=== PATIENT | female | born 1980 | race Caucasian/White ===

== ENCOUNTER 2019-04-15 20:05 | Day surgery (SDC) | payer BC ==
[~2019-04-15] VITALS: Ht 165.1 cm; Wt 65.5 kg
[2019-04-15] MEDS ORDERED: BIRTH CONTROL (20:18)
[2019-04-15 21:00] VITALS: BP 126/72
[2019-04-15 22:00] VITALS: BP 123/77
--- NOTE | 2019-04-15 23:00 | NUR ---
SPLINT APPLIED BY MD TO L LOWER EXT. CAP REFILL LESS THAN 3 SEC. PULSE STRONG AND PALPABLE.
[2019-04-16] VITALS (7 sets, daily range): BP systolic 105–131; BP diastolic 54–77; Ht 165.1 cm; Wt 65.5 kg
[2019-04-16] MEDS ORDERED: SPRINTEC 28 DA1 EAC1 PO (00:55)
[2019-04-16 05:34] LABS: BASOPHILS 0.2 % (0-2); EOSINOPHILS 0.3 % (0-7); HEMATOCRIT 33.6 % (36.0-48.0); HEMOGLOBIN 11.4 g/dL (12-16); IMMATURE GRANULOCYTES 0.4 % (0-5); LYMPHOCYTES 25.2 % (15-50); MCH 31.8 pg (26.0-34.0); MCHC 33.9 g/dL (31.0-37.0); MCV 93.9 fL (80.0-100.0); MEAN PLATELET VOLUME 10.4 fL (7.4-10.4); MONOCYTES 10.1 % (2-11); NEUTROPHILS 63.8 % (40-80); PLATELET COUNT 189 10x3/uL (130-400); RBC 3.58 10x6/uL (4.00-5.40); RDW 12.3 % (11.5-14.5)
[2019-04-16 05:49] LABS: ANION GAP 11.8 mmol/L (8-16); BILIRUBIN - TOTAL 1.38 mg/dL (0.2-1.3); CALCIUM 7.9 mg/dL (8.5-10.1); CARBON DIOXIDE 24.6 mmol/L (21.0-32.0); CREATININE - SERUM 0.9 mg/dL (0.6-1.3); POTASSIUM - SERUM 3.4 mmol/L (3.5-5.1); PROTEIN - SERUM 5.6 g/dL (6.4-8.2)
--- NOTE | 2019-04-16 12:17 | NUR ---
ALERT AND OREITNED X4 WITH SPLIT NOTED TO LOFT ANKLE. WITH CAP RELILL <3 SEC. AND GOOD ROM. IV TO LEFT. A/C TO N/S 125CC/HR. MORPHINE GIVEN FOR PAIN AND ICE COMPRESSES. DR. SALAMANCA HERE FOR CONSULT
--- NOTE | 2019-04-16 12:20 | NUR ---
CONSEENTS SIGNED FOR SURGERY WITH NO COMPLAINTS AT THIS TIME
--- NOTE | 2019-04-16 13:30 | NUR ---
PT SIGNED SURGICAL CONSENT AND RPEOPED FOR SURGERY. STABLE AT TIME OF DEPARTURE.
--- NOTE | 2019-04-16 16:00 | NUR ---
PT RETURNED WITH CAST NOTED TO LLE WITH CAP REFILL <3 SEC WITH GOOD ROM OF TOES. DENIES ANY PAIN OR DISCOMFORT AT THIS TIME.
--- NOTE | 2019-04-16 17:18 | NUR ---
SCD PLACED ON RIGHT LE.
--- NOTE | 2019-04-16 20:00 | NUR ---
RESTING QUETILY WITH NO DISTRESS NOTED. RESP UNLABORED. IV TO LAC INTACT WITHOUT REDNESS OR EDEMA NOTED. MARCIN WRAP DRESSING TO LEFT LOWER LEF INTACT WITHOUT DRAINAGE NOTED. CL IN REACH
[2019-04-17 00:52] VITALS: BP 117/63
[2019-04-17 05:19] VITALS: BP 125/76
[2019-04-17 05:50] LABS: BASOPHILS 0.1 % (0-2); EOSINOPHILS 0.2 % (0-7); HEMATOCRIT 33.3 % (36.0-48.0); HEMOGLOBIN 11.1 g/dL (12-16); IMMATURE GRANULOCYTES 0.2 % (0-5); LYMPHOCYTES 23.1 % (15-50); MCHC 33.3 g/dL (31.0-37.0); MEAN PLATELET VOLUME 10.8 fL (7.4-10.4); NEUTROPHILS 64.4 % (40-80); PLATELET COUNT 165 10x3/uL (130-400); RBC 3.47 10x6/uL (4.00-5.40); RDW 12.3 % (11.5-14.5); WBC 9.4 10x3/uL (4.8-10.8)
[2019-04-17 06:04] LABS: CALC OSMOLALITY 272 mosm/kg (275-300); CALCIUM 7.8 mg/dL (8.5-10.1); CARBON DIOXIDE 20.7 mmol/L (21.0-32.0); CHLORIDE - SERUM 108 mmol/L (98-107); CREATININE - SERUM 0.8 mg/dL (0.6-1.3); GLUCOSE 80 mg/dL (74-106); POTASSIUM - SERUM 3.9 mmol/L (3.5-5.1); SODIUM 138 mmol/L (136-145); eGFR NON AFRICAN AMERICAN 85 mL/min (90-120)
[2019-04-17 06:10] LABS: UREA NITROGEN 6 mg/dL (7-18)
--- NOTE | 2019-04-17 06:20 | NUR ---
I have reviewed this patient and I concur with the Shift Assessment completed by the Licensed Practical Nurse today this shift.
--- NOTE | 2019-04-17 07:20 | NUR ---
PT RESTING IN BED WITH LEFT LOWER EXTREMITY ELEVATED. DRESSING C/D/I TO EXTREMITY. WARM TO TOUCH. ABLE TO MOVE TOES. ICE PACKS IN PLACE. PT REPORTS PAIN 10/10 AT THIS TIME. TORADOL ADMINISTERED PER MD ORDERS. IV TO LEFT AC WITH NS @ 50ML/HR INFUSING VIA PUMP. SITE WITHOUT REDNESS OR EDEMA. DENIES FURTHER NEEDS AT THIS TIME. CL WITHIN REACH. ENCOURAGED TO CALL WITH NEEDS. CONTINUE POC
[2019-04-17 07:59] VITALS: BP 134/84
[2019-04-17] MEDS ORDERED: PROTONIX40 MG PO (12:19)
[2019-04-17] MEDS ORDERED: HYDROCODON-ACE1 EAC7 PO (12:36)
[2019-04-17 12:50] VITALS: BP 120/83
--- NOTE | 2019-04-17 13:24 | MORECARE ---
CASE MANAGEMENT DISCHARGE SUMMARY PATIENT: ROSALINO RUIZ UNIT: [id number] ADM DATE: 04/15/19 AGE: 38 : [birth year] SEX: F ROOM/BED: D.2233 AUTHOR: BIJAN MARES PHYSICIAN: REFERRING PHYSICIAN: EDUARDO SANABRIA MD DATE OF SERVICE: 04/17/19 Discharge Plan Patient Name: ROSALINO RUIZ Facility: [facility]:[place] : 1980 Planned Disposition: Home Anticipated Discharge Date: Discharge Date: Expected LOS: Initial Reviewer: [email or web address] Initial Review Date: 04/17/2019 Generated: 04/17/19 2:23 pm Comments DCP- Discharge Planning Updated by [email or web address]: Paris Sutherland on 04/17/19 12:[address] Patient Name: ROSALINO RUIZ Admission Status: ER Accout number: [id number] Admission Date: 04-15-2019 : 1980 Admission Diagnosis: Attending: EDUARDO SANABRIA Current LOS: 2 Anticipated DC Date: Planned Disposition: Home Primary Insurance: [employer] OUT OF STATE Discharge Planning Comments: RECEIVED DISCHARGE ORDERS. MET WITH PATIENT AND SHE IS IN AGREEMENT TO DISCHARGE. SHE WOULD LIKE A WALKER RATHER THAN CRUTCHES. SHE WOULD LIKE A SHOWER CHAIR IF INSURANCE WILL PAY FOR IT. I CALLED [employer] AND ORDER FAXED. AYDIN STATES HER INSURANCE WILL NOT PAY FOR A SHOWER CHAIR. PATIENT STATES SHE WILL BUY ONE HERSELF FROM [employer]. 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 [employer]: Paris Sutherland External Providers [facility] Next Contact Date: Service Request Date: Service Type: Resolution: Reviewer: Comments: Coverage Notice Reviewer: [id number] - Paris Sutherland Notice Issued Date-Time: 04/17/2019 13:22 Notice Type: Patient Choice Letter Notice Delivered To: Patient Relationship to Patient: Self Animal Cruelty Investigation Supervisor Name: Delivery Method: HAND - Hand Delivered Clarisa Days: Prior Verbal Notification: Recipient Understood Notice: Yes Recipient Signature: Yes Med Rec Note Co-signed by Attending: Coverage Notice Comment: NANCY FOR [place] Patient Name: ROSALINO RUIZ Page [phone] at 1324 All edits/amendments must be made on the electronic document DICTATION DATE: 04/17/191322 SURFACE SUPERVISOR: CAITLYN 04/17/191322 RPT#: [id number] DC DATE: STATUS: ADM IN [facility] [address] [place] [address] END OF REPORT
[2019-04-17] MEDS ORDERED: HYDROCODONE-A1 UDTA2 PO (13:43)
[2019-04-17 14:04] LABS: HCG URINE NEGATIVE (NEGATIVE)
--- NOTE | 2019-04-18 07:19 | MORECARE ---
CASE MANAGEMENT DISCHARGE SUMMARY PATIENT: ROSALINO RUIZ UNIT: [id number] ADM DATE: 04/15/19 AGE: 38 : [birth year] SEX: F ROOM/BED: D.2233 AUTHOR: BIJAN MARES PHYSICIAN: REFERRING PHYSICIAN: EDUARDO SANABRIA MD DATE OF SERVICE: 04/18/19 Discharge Plan Patient Name: ROSALINO RUIZ Facility: [facility]:[place] : 1980 Planned Disposition: Home Anticipated Discharge Date: Discharge Date: 04/17/2019 Expected LOS: 0 Initial Reviewer: [email or web address] Initial Review Date: 04/17/2019 Generated: 04/18/19 8:19 am Comments DCP- Discharge Planning Updated by [email or web address]: Paris Sutherland on 04/17/19 12:[address] Patient Name: ROSALINO RUIZ Admission Status: ER Accout number: [id number] Admission Date: 04-15-2019 : 1980 Admission Diagnosis: Attending: EDUARDO SANABRIA Current LOS: 2 Anticipated DC Date: Planned Disposition: Home Primary Insurance: [employer] OUT OF STATE Discharge Planning Comments: RECEIVED DISCHARGE ORDERS. MET WITH PATIENT AND SHE IS IN AGREEMENT TO DISCHARGE. SHE WOULD LIKE A WALKER RATHER THAN CRUTCHES. SHE WOULD LIKE A SHOWER CHAIR IF INSURANCE WILL PAY FOR IT. I CALLED [employer] AND ORDER FAXED. AYDIN STATES HER INSURANCE WILL NOT PAY FOR A SHOWER CHAIR. PATIENT STATES SHE WILL BUY ONE HERSELF FROM [employer]. 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: Paris Sutherland Coverage Notice Reviewer: [email or web address] - Paris Sutherland Notice Issued Date-Time: 04/17/2019 13:22 Notice Type: Patient Choice Letter Notice Delivered To: Patient Relationship to Patient: Self Maintenance And Repair Worker Name: Delivery Method: HAND - Hand Delivered Clarisa Days: Prior Verbal Notification: Recipient Understood Notice: Yes Recipient Signature: Yes Med Rec Note Co-signed by Attending: Coverage Notice Comment: NANCY FOR [employer] Last DP export: 04/17/19 12:24 Patient Name: ROSALINO RUIZ Page [phone] at 0719 All edits/amendments must be made on the electronic document DICTATION DATE: 04/18/19718 RESTAURANT MANAGER: CAITLYN 04/18/19718 RPT#: [id number] DC DATE:04/17/19 STATUS: DIS IN [facility] [address] [place] [address] END OF REPORT
== END 2019-04-17 15:22 | disposition home or self-care (01) ==
LOC: OBSVTIME → D.OPS 20:05 → D.ER 20:05 → D.MS 23:12 → OBSVTIME 23:12 → D.ER 04-16 → D.OPS 04-17 15:22 → D.MS 04-17 15:22
PROVIDERS: Family Medicine; ATTEND Internal Medicine Nephrology
DX: S82.842A Displaced bimalleolar fracture of left lower leg, initial encounter for closed fracture (principal); X50.1XXA Overexertion from prolonged static or awkward postures, initial encounter; Y93.01 Activity, walking, marching and hiking; E87.6 Hypokalemia; E83.42 Hypomagnesemia; D64.9 Anemia, unspecified